=== PATIENT | male | born 2000 | race Asian ===

== ENCOUNTER 2020-05-04 01:01 | Emergency (ER) | payer OTHER ==
[2020-05-04] MEDS ORDERED: Fluorescein Opthalmic Strip ONE (01:39)
[2020-05-04] MEDS ORDERED: Proparacaine 0.5% Opth 15 ML BOT ONE (01:39)
== END 2020-05-04 02:22 | disposition home or self-care (01) ==
LOC: ERS 01:01
DX: H57.11 Ocular pain, right eye (principal)
CPT/HCPCS: 99283